=== PATIENT | male | born 1955 | race African-American/Black ===

== ENCOUNTER 2018-04-07 14:54 | Emergency (ER) | payer MEDICARE, MEDICAID ==
[~2018-04-07] VITALS: Ht 170.2 cm; Wt 99.8 kg
[2018-04-07 15:41] VITALS: BP 123/76
[2018-04-07] MEDS ORDERED: HYDROcodone-ACET 7.5/325MG TAB PO ONE (16:30)
[2018-04-07] MEDS ORDERED: KETOROLAC TROMETH 60MG/2ML VIAL IM ONE (16:30)
== END 2018-04-07 17:04 | disposition home or self-care (01) ==
LOC: EDBD 14:54 → ER 14:54
DX: S39.012A Strain of muscle, fascia and tendon of lower back, initial encounter (principal); S76.012A Strain of muscle, fascia and tendon of left hip, initial encounter; S76.011A Strain of muscle, fascia and tendon of right hip, initial encounter; E11.9 Type 2 diabetes mellitus without complications; I10 Essential (primary) hypertension; V43.52XA Car driver injured in collision with other type car in traffic accident, initial encounter; Y93.89 Activity, other specified; Y92.488 Other paved roadways as the place of occurrence of the external cause; Y99.8 Other external cause status
CPT/HCPCS: 72100; 73502; 96372; 99283; J1885

== ENCOUNTER 2019-09-03 09:54 | Emergency (ER) | payer OTHER, MEDICAID ==
[~2019-09-03] VITALS: Ht 157.5 cm; Wt 81.6 kg
[2019-09-03 10:10] VITALS: BP 194/90
== END 2019-09-03 13:33 | disposition left against medical advice (07) ==
LOC: ER 09:54
DX: M54.5 Low back pain (principal); R10.30 Lower abdominal pain, unspecified; Z53.21 Procedure and treatment not carried out due to patient leaving prior to being seen by health care provider